=== PATIENT | male | born 1955 | race Caucasian/White ===

== ENCOUNTER 2017-03-08 16:16 | Emergency (ER) | payer OTHER ==
[~2017-03-08] VITALS: Ht 180.3 cm; Wt 122.5 kg
[~2017-03-08 16:16] MED LIST: LIPITOR40 MG PO; LYRICA 100 MG100 MG PO; METHSCOPOLAMIN2.5 MG PO; NORCO 325 MG-51 TAB PO; SINGULAIR 10 MG10 MG PO; TAMSULOSIN HYD0.4 MG PO; XYZAL5 MG PO; ZESTRIL20 MG PO; ZYLOPRIM 300MG300 MG PO
--- OUTSIDE RECORDS SUMMARY | 2017-03-08 16:31 | External Medical Summary Rpt ---
Author Author [employer] Organization [employer] Address Unknown Phone Unavailable Purpose Continuity of Care Document - through 2016
--- OUTSIDE RECORDS SUMMARY | 2017-03-08 16:31 | External Medical Summary Rpt ---
Demographics Preferred Language Andor[place] Marital Status Unknown Evangelical Affiliation Unknown Race Unknown Ethnic Group Unknown Author Author , Organization [employer] Address Unknown Phone Unavailable Purpose Continuity of Care Document - through 2016 Immunization No patient found.
--- OUTSIDE RECORDS SUMMARY | 2017-03-08 16:31 | External Medical Summary Rpt ---
Demographics Preferred Language Citizen Of [place] Marital Status Unknown Hinduism Affiliation Unknown Race Unknown Ethnic Group Unknown Author Author , Organization [employer] Address Unknown Phone Unavailable Purpose Continuity of Care Document - through 2016 Immunization No patient found.
--- OUTSIDE RECORDS SUMMARY | 2017-03-08 16:32 | External Medical Summary Rpt ---
Author Author [employer], [employer] Organization [employer] Address Unknown Phone Unavailable
[2017-03-08] MEDS ORDERED: SPIRIVA HA1 PUFF/INH IH (16:42)
--- NOTE | 2017-03-08 16:54 | Urgent Treatment Center Report ---
History of Present Issue Date/Time Seen by Provider 03/08/17 1837 Visit Reason Pt arrived:Walked Presenting Problem:POSSIBLE ALLERGIC REACTION, SWELLING TO EYELIDS AND FACIAL CHEECKS AND DANIEL HANDS. REPORTS SWELLING BEGAN LASTNIGHT. PT REPORTS UNKNOWN TO WHAT HAS CAUSED REACTION Location if Accident: Onset of symptoms date/time:03/07/17/ or onset unknown for:MEDICAL HX UNKNOWN Have you (or family members/close friends) recently traveled outside the [place]? N If Yes, where/when: Have you had exposure to infectious disease within the past month? TB? Other? Specify: Patient states that he went to a green house yesterday and looked at some pinon and plants, then eat at [employer] and went to a recital. State that while there he began to notice that he was having an allergic reaction to something. States that he began having swelling to eyelids, face, lips and hands. States that he feels itchy all over ALLERGIES Coded Allergies: No Known Allergies (08/29/16) Home Medications Reported Medications HYDROCODONE/ACETAMINOPHEN ([place] 5-325 Tablet) 1-2 TAB PO Q6HP PRN PAIN Montelukast Sodium (Singulair 10MG) 10 MG PO QHS Lisinopril (Zestril) 20 MG PO DAILY Pregabalin (Lyrica 100Mg) 150 MG PO Q8 Allopurinol (Zyloprim 300MG Tab Generic) 300 MG PO Tiotropium [place] (Spiriva) 1 PUFF IH DAILY #30 History Medical History General CAD? No Angina: No [place]: No Hypertension? Yes Hyperlipidemia? Yes CHF? No DVT? No PE? No COPD? No Asthma? Yes Anemia? No GERD? Yes Gastric ulcers? No GI Bleed? No Hernia? No Thyroid Problems? No Hypothyroidism? No CVA? No Seizures? No Diabetes? No Renal Insuffiency? No UTI? No Stones? Yes BPH? No GB Disease: No Nephritic Syndrome? No Asplenia? No Hepatitis? No Sickle Cell Disease? No Arthritis? No Migraines? No Cataracts? No Glaucoma? No MRSA? No HIV? No TB? No Anxiety? No Depression? No Cancer? No Immunization HX DT/Tetanus Unknown Surgical Hx Previous Surgery?Y KIDNEY STONE SURGERY X 2 TONSILS Prostate Procedures Social History Smoking Hx Smoker: Never Smoker Tobacco: No Alcohol Alcohol: No Review of Systems All Other Systems Reviewed and Negative Skin rash Comment Swelling in face, eyelids, hands and red raised rash and Hives states that he feels itchy all and unsure what he could be having a reaction to that he has not changed anything at home but did stop at a green house yesterday and handle some pinon unsure if that may be where he came into contact with allergan Physical Exam Vital Signs Vital Signs Date Time Temp Pulse Resp B/P Pulse O2 O2 Flow FiO2 Ox Delivery Rate 03/08 1636 98.1 77 18 112/66 97 03/08 1621 98.1 77 18 112/ 97 General Appearance Patient appears to be having an allergic reaction, eyes swollen, ears and face swollen with allergic urticaria all over body Respiratory Status Yes: trachea midline, chest symmetrical. No: respiratory distress. 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 No Results/Orders Current Medication Orders Sig/Missy Start time Last Medication Dose Route Stop Time Status Admin Diphenhydramine HCl 0 .STK-MED ONE 03/08 1646 DC .ROUTE Methylprednisolone 0 .STK-MED ONE 03/08 1646 DC Sodium Succinate .ROUTE Diphenhydramine HCl 50 MG ONCE ONE 03/08 1645 DC 03/08 IM 03/08 1646 1651 Methylprednisolone 125 MG ONCE ONE 03/08 1645 DC 03/08 Sodium Succinate IM 03/08 1646 1651 Progress [facility] Progress Notes Date 03/08/17 Time 1712 Comment After injection swelling has improved and gone down. hive have diminished, and patient states that he does not feel as itchy Departure Departure Time of Disposition 171 Disposition DC Home or Self Care(routine) Clinical Impression Primary Impression: Allergic reaction Qualifiers: Encounter type: initial encounter Qualified Code: T78.40XA - Allergy, unspecified, initial encounter Condition STABLE Referrals Matthew MARTINEZ,Timur Mcfarland (Family) ANGELA RODRIGUEZ Patient Instructions DI for General Allergic Reactions Additional Instructions Follow up with installation specialist to have testing to try to distinguish what you may be allergic too Take Medication as prescribed Follow up with family doctor if needed If at any time you begin to swell worse or began to have shortness of breath report immediately to the Emergency room Discharge Counseling Counseled pt/family regarding diagnosis, medications/RX, home care, follow up needs Prescriptions Current Visit Scripts Prednisone (Prednisone 20MG) 20 MG PO BID #10 TAB Diphenhydramine Hcl (Benadryl 50MG Cap) 50 MG PO Q4-6H PRN #16 CAP at 1190
--- NOTE | 2017-03-08 16:54 | Urgent Treatment Center Report ---
History of Present Issue Date/Time Seen by Provider 03/08/17 7167 Visit Reason Pt arrived:Walked Presenting Problem:POSSIBLE ALLERGIC REACTION, SWELLING TO EYELIDS AND FACIAL CHEECKS AND DANIEL HANDS. REPORTS SWELLING BEGAN LASTNIGHT. PT REPORTS UNKNOWN TO WHAT HAS CAUSED REACTION Location if Accident: Onset of symptoms date/time:03/07/17/ or onset unknown for:MEDICAL HX UNKNOWN Have you (or family members/close friends) recently traveled outside the [place]? N If Yes, where/when: Have you had exposure to infectious disease within the past month? TB? Other? Specify: Patient states that he went to a green house yesterday and looked at some pinon and plants, then eat at [employer] and went to a recital. State that while there he began to notice that he was having an allergic reaction to something. States that he began having swelling to eyelids, face, lips and hands. States that he feels itchy all over ALLERGIES Coded Allergies: No Known Allergies (08/29/16) Home Medications Reported Medications HYDROCODONE/ACETAMINOPHEN ([place] 5-325 Tablet) 1-2 TAB PO Q6HP PRN PAIN Montelukast Sodium (Singulair 10MG) 10 MG PO QHS Lisinopril (Zestril) 20 MG PO DAILY Pregabalin (Lyrica 100Mg) 150 MG PO Q8 Allopurinol (Zyloprim 300MG Tab Generic) 300 MG PO Tiotropium [place] (Spiriva) 1 PUFF IH DAILY #30 History Medical History General CAD? No Angina: No [place]: No Hypertension? Yes Hyperlipidemia? Yes CHF? No DVT? No PE? No COPD? No Asthma? Yes Anemia? No GERD? Yes Gastric ulcers? No GI Bleed? No Hernia? No Thyroid Problems? No Hypothyroidism? No CVA? No Seizures? No Diabetes? No Renal Insuffiency? No UTI? No Stones? Yes BPH? No GB Disease: No Nephritic Syndrome? No Asplenia? No Hepatitis? No Sickle Cell Disease? No Arthritis? No Migraines? No Cataracts? No Glaucoma? No MRSA? No HIV? No TB? No Anxiety? No Depression? No Cancer? No Immunization HX DT/Tetanus Unknown Surgical Hx Previous Surgery?Y KIDNEY STONE SURGERY X 2 TONSILS Prostate Procedures Social History Smoking Hx Smoker: Never Smoker Tobacco: No Alcohol Alcohol: No Review of Systems All Other Systems Reviewed and Negative Skin rash Comment Swelling in face, eyelids, hands and red raised rash and Hives states that he feels itchy all and unsure what he could be having a reaction to that he has not changed anything at home but did stop at a green house yesterday and handle some pinon unsure if that may be where he came into contact with allergan Physical Exam Vital Signs Vital Signs Date Time Temp Pulse Resp B/P Pulse O2 O2 Flow FiO2 Ox Delivery Rate 03/08 1636 98.1 77 18 112/66 97 03/08 1621 98.1 77 18 112/ 97 General Appearance Patient appears to be having an allergic reaction, eyes swollen, ears and face swollen with allergic urticaria all over body Respiratory Status Yes: trachea midline, chest symmetrical. No: respiratory distress. 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 No Results/Orders Current Medication Orders Sig/Missy Start time Last Medication Dose Route Stop Time Status Admin Diphenhydramine HCl 0 .STK-MED ONE 03/08 1646 DC .ROUTE Methylprednisolone 0 .STK-MED ONE 03/08 1646 DC Sodium Succinate .ROUTE Diphenhydramine HCl 50 MG ONCE ONE 03/08 1645 DC 03/08 IM 03/08 1646 1651 Methylprednisolone 125 MG ONCE ONE 03/08 1645 DC 03/08 Sodium Succinate IM 03/08 1646 1651 Progress [facility] Progress Notes Date 03/08/17 Time 1712 Comment After injection swelling has improved and gone down. hive have diminished, and patient states that he does not feel as itchy Departure Departure Time of Disposition 171 Disposition DC Home or Self Care(routine) Clinical Impression Primary Impression: Allergic reaction Qualifiers: Encounter type: initial encounter Qualified Code: T78.40XA - Allergy, unspecified, initial encounter Condition STABLE Referrals Matthew MARTINEZ,Timur Mcfarland (Family) ANGELA RODRIGUEZ Patient Instructions DI for General Allergic Reactions Additional Instructions Follow up with operations specialist to have testing to try to distinguish what you may be allergic too Take Medication as prescribed Follow up with family doctor if needed If at any time you begin to swell worse or began to have shortness of breath report immediately to the Emergency room Discharge Counseling Counseled pt/family regarding diagnosis, medications/RX, home care, follow up needs Prescriptions Current Visit Scripts Prednisone (Prednisone 20MG) 20 MG PO BID #10 TAB Diphenhydramine Hcl (Benadryl 50MG Cap) 50 MG PO Q4-6H PRN #16 CAP at 5337
[2017-03-08] MEDS ORDERED: PREDNISONE 20MG20 MG PO (17:16)
[2017-03-08] MEDS ORDERED: BENADRYL 50MG C50 MG PO (17:16)
[2017-03-08 17:23] VITALS: BP 112/66
== END 2017-03-08 17:24 | disposition home or self-care (01) ==
LOC: ER 16:16 → UTC 16:16
DX: T78.40XA Allergy, unspecified, initial encounter (principal); I10 Essential (primary) hypertension; K21.9 Gastro-esophageal reflux disease without esophagitis